=== PATIENT | female | born 1960 | race Caucasian/White ===

== ENCOUNTER 2019-09-21 18:55 | Emergency (ER) | payer MEDICARE, OTHER ==
[~2019-09-21] VITALS: Ht 160 cm; Wt 108.9 kg
[2019-09-21] MEDS ORDERED: IPRATROPIUM BROMIDE 0.02% 2.5 ML NEB NEB STA (21:21)
[2019-09-21] MEDS ORDERED: ALBUTEROL SULF 0.083% NEB SOLN 3 ML NEB NEB STA (21:21)
[2019-09-21] MEDS ORDERED: SODIUM CHLORIDE 0.9% 1000ML 1,000 ML IV STA (21:24)
[2019-09-21] MEDS ORDERED: HYDROCODONE/CHLORPHENIRAMINE 5 ML LIQCR PO PRN (21:30)
[2019-09-21] MEDS ORDERED: ACETAMINOPHEN 325 MG TAB ONE (21:42)
[2019-09-21] MEDS ORDERED: ACETAMINOPHEN 325 MG TAB PO ONE (22:30)
[2019-09-21 22:32] LABS: BASOPHILS % 0.4 % (0.0-1.0); EOSINOPHILS # (AUTO) 0.1 (0.0-0.4); HEMATOCRIT 43.7 % (34.2-44.1); HEMOGLOBIN 13.8 g/dL (12.0-16.0); LYMPHOCYTES # (AUTO) 1.5 (1.0-3.2); LYMPHOCYTES % 30.7 % (18.0-39.1); MEAN CORPUSCULAR HEMOGLOBIN 29.1 pg (28-32); MEAN CORPUSCULAR HGB CONC 31.6 g/dL (31-35); MEAN CORPUSCULAR VOLUME 92.2 fL (81-99); MONOCYTES # (AUTO) 0.7 (0.2-0.8); MONOCYTES % 13.5 % (4.4-11.3); NEUTROPHILS # (AUTO) 2.7 (2.1-6.9); NEUTROPHILS % 54.2 % (38.7-80.0); PLATELET COUNT 185 x10e3/uL (140-360); RED BLOOD COUNT 4.74 x10e6/uL (3.6-5.1); RED CELL DISTRIBUTION WIDTH 12.8 % (11.7-14.4)
[2019-09-21 22:48] LABS: INFLUENZAE A&B ANTIGEN (RAPID) POSITIVE FLU A (NEGATIVE); STREPTOCOCCUS GRP A ANTIGEN NEGATIVE (NEGATIVE)
--- NOTE | 2019-09-21 22:49 | NUR ---
MD NOTIFIED AND AWARE OF CRITICAL LAB VALUE: INFLUENZA A +.
[2019-09-21 22:52] LABS: ALANINE AMINOTRANSFERASE 39 IU/L (0-55); ALBUMIN 3.7 g/dL (3.5-5.0); ALKALINE PHOSPHATASE 96 IU/L (40-150); ANION GAP 12.8 mmol/L (8-16); BLOOD UREA NITROGEN 6 mg/dL (7-26); BUN/CREATININE RATIO 7 (6-25); CALCIUM 9.7 mg/dL (8.4-10.2); CARBON DIOXIDE 29 mmol/L (22-29); CHLORIDE 95 mmol/L (98-107); CREATININE, SERUM 0.87 mg/dL (0.57-1.11); EST GLOMERULAR FILTRATION RATE > 60 ML/MIN (60-); GLUCOSE 86 mg/dL (74-118); POTASSIUM 3.8 mmol/L (3.5-5.1); SODIUM 133 mmol/L (136-145)
--- NOTE | 2019-09-21 23:33 | Diagnostic Imaging Report ---
EXAMINATION: CHEST 2 VIEWS INDICATION: Fever and cough ^ORDER PLACED BY ^[id number] ^2210 ^Y COMPARISON: None FINDINGS: PA and lateral views TUBES and LINES: None. LUNGS: Limited by low lung volumes and body habitus. Left midlung linear opacification. Mild central vascular congestion, accentuated by low lung volumes. PLEURA: No pleural effusion or pneumothorax. HEART AND MEDIASTINUM: The cardiomediastinal silhouette is enlarged, accentuated by low lung volumes and technique.. BONES AND SOFT TISSUES: No acute osseous lesion. Lower thoracic spine vertebroplasty. Soft tissues are unremarkable. UPPER ABDOMEN: No free air under the diaphragm. IMPRESSION: Limited as above. Left midlung linear opacification, representing atelectasis and/or developing pneumonia. Signed by: Dr. Mike Booker MD on 09/21/2019 11:29 PM
--- OUTSIDE RECORDS SUMMARY | 2019-09-23 14:01 | XMS REPORT | Summary of Care ---
Author Author [facility] Organization [facility] Address Unknown Phone Unavailable Care Team Providers Care Process Analyst Name Role Phone Sasha Best MD PCP Symone Fan MD 29 Unavailable True Solorzano 29 Bryson Gonzalez MD 29 Reason for Referral * (Routine) Referred By Contact Referred To Contact Status Reason Specialty Diagnoses / Procedures Adonis Beckwith MD [address] [place] [address] Pending Diagnoses KAY (obstructive sleep apnea) P rocedures DIAGNOSTIC SLEEP STUDY * (Routine) Referred By Contact Referred To Contact Status Reason Specialty Diagnoses / Procedures Adonis Beckwith MD [address] [place] [id number] Pending Diagnoses KAY (obstructive sleep apnea) P rocedures DIAGNOSTIC SLEEP STUDY Reason for Visit * Reason Comments Shortness of Breath Encounter Details Care Team Description Date Type Department Adonis Beckwith MD [facility] [address] [address] [phone] Shortness of Breath 07/19/2019 Office Visit [facility] Pulmonary [address] [place] [address]. 8th Floor; [address] [place] [address] Allergies Comments Active Allergy Reactions Severity Noted Date Cefotaxime 10/12/2017 Cleocin Itching, Rash High 04/01/2016 Ibuprofen Itching, Rash High 01/12/2019 Opioid Analgesics Itching High 04/01/2016 Oxycodone-Acetaminophen Itching High 04/01/2016 Muscle spasms Prednisone Itching, High 08/11/2017 Nausea Only, Other (See Comments) documented as of this encounter (statuses as of 07/20/2019) Medications End Date Status Medication Sig Dispensed Refills Start Date Active HYDROmorphone (DILAUDID) Take 2 mg by 0 2 MG tablet mouth every 4 hours. Active atenolol (TENORMIN) 25 MG Take 1/2 45 Tab 3 tablet tablet by 8 mouth daily Active hydrOXYzine (ATARAX) 50 Take a half 30 Tab 1 MG tablet to full tab 9 by mouth daily as needed for anxiety Active Ivabradine HCl (CORLANOR) Take by 0 7.5 MG TABS mouth two times daily. Active amitriptyline (ELAVIL) 50 Take 1 Tab by 30 Tab 0 MG tablet mouth 9 nightly. Active hydroxychloroquine Take 1 Tab by 2 (PLAQUINIL) 200 MG tablet mouth two 9 times daily. Active midodrine (PROAMATINE) 5 Take 5 mg by 0 MG tablet mouth 3 times daily. 07/19/2019 Discontinued clobetasol (TEMOVATE) APPLY TO 1 0.05 % external solution AFFECTED 9 AREA(S) PRN 07/19/2019 Discontinued lorazepam (ATIVAN) 0.5 MG Take 0.5 mg 0 tablet by mouth as needed for Anxiety. documented as of this encounter (statuses as of 07/20/2019) Active Problems Problem Noted Date Regular check-up 05/04/2018 Tachycardia 03/30/2018 Inappropriate sinus tachycardia 03/30/2018 Fibromyalgia 03/30/2018 Elevated hemidiaphragm 04/02/2016 documented as of this encounter (statuses as of 07/20/2019) Social History Date Tobacco Use Types Packs/Day Years Used Quit: 04/01/1986 Former Smoker Cigarettes 0.5 6 Smokeless Tobacco: Never Used Drinks/Week oz/Week Comments Alcohol Use Very little. Maybe one/two drinks a year No Sex Assigned at Date Recorded Not on file Industry Job Start Date Occupation Not on file Not on file Not on file Travel End Travel History Travel Start No recent travel history available. documented as of this encounter Last Filed Vital Signs Reading Time Taken Comments Vital Sign 119/80 07/19/2019 3:16 PM CDT Blood Pressure 68 07/19/2019 3:16 PM CDT Pulse 37.3 C (99.2 F) 07/19/2019 3:16 PM CDT Temperature 16 07/19/2019 3:16 PM CDT Respiratory Rate - - Oxygen Saturation - - Inhaled Oxygen Concentration 105.7 kg (233 lb) 07/19/2019 3:16 PM CDT Weight 160 cm (5' 3") 07/19/2019 3:16 PM CDT Height 41.27 07/19/2019 3:16 PM CDT Body Mass Index documented in this encounter Patient Instructions * Patient Instructions* Adonis Beckwith MD - 07/19/2019 3:20 PM CDT Specific instructions: I have ordered a sleep study & I will call you with the results General instructions: 1. If you have not already done so, we encourage you to sign up for [employer] as i t is a secure and efficient way to contact us. 2. How to contact us: My Chart message is an efficient way to contact us for non-urgent matters. Call us at [phone]. The bone char kiln operator will get your information and a nurse o r physician will call you back. To send clinical records: You can scan and send as an attachment to a [employer] message, fax to [phone] or mail it to us. Mailing address- Pulmonary Clinic, [address], [facility], [address] [place] [address] 3. To schedule appointments, call 4. To schedule CT scans, call Radiology at [phone] Thank you choosing the Pulmonary Diseases clinic at [facility]. Please let us know what we can do better by providing comments on the survey you will receive. We value your feedback! documented in this encounter Progress Notes * Adonis Beckwith MD - 07/19/2019 3:20 PM CDT Chief Complaint Patient presents with Shortness of Breath ASSESSMENT & PLAN: Severe Exercise Limitation- can barely walk inside her house 07/23- Echo- LVEF > 60%, enlarged LA, RV mildly enlarged but global RV systolic function is normal. Est sPAP 25-30 + RAP 07/23- 6MW- walked only 130m, no desaturation (SaO2 elma 93%), HR baseline 68 a nd max 89 Etiology of exercise limitation? She is being treated for "Inappropriate Sinus T achycardia" by Dr. Sloan with Atenolol & Corlanor and for Orthostatic Hypotension with Midodrine. 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 Is tired and exhausted during the day. Will re-evaluate for KAY. Given her obesi ty, will check Diagnostic sleep study with ETCO2 monitoring to look for hypovent ilation. Lung Nodular Densities- 11/21/18- Ct Abd (by report)- no lung nodules repopted 11/26/18- CT chest (by report)- "Mild perihilar ground glass opacities are prese nt. Interval development of numerous predominantly subpleural nodules in the lef t lung, most of which are new since recent CT from 11/21/2018". She underwent B's copy on 11/30/18- all cultures were negative (I cannot see cytology results on Ca re Everywhere- she was told that cytology was normal). She was treated with empi jesusita Abx. 03/01/19- CT chest (reviewed)- no nodules. In all likelihood the nodules were inf ectious in nature and have resolved. No further GAO needed HISTORY OF PRESENT ILLNESS: 59 y.o. female, quit smoking 30 years ago. 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 Has not been able to work in 2007. Lives alone in a 3rd floor apartment that h as an elevator. 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 Her brother of A1AT deficiency related lung d z in 02/20 KAY- dx 2013. Did not perceive benefit from CPAP Large Pericardial cyst- surgery 2009 Paralyzed R hemidiaphragm since 2009- s/p repair by Dr. Castro in 05/20 Autoimmune hepatitis & MORSE- sees Dr. Varela- was on po Budesonide 07/22 to 09/21, Azathioprine from 11/23 to 01/21 Inflammatory arthritis? Patient has seen multiple Rheum without a specific di agnosis being made. Is HLA B27 positive. Now sees Dr. Herminia Thompson- On Plaquenil since 06/23. Plan is to start Mycophenolate Quantiferon Gold was "inconclusive"- saw ID, Dr. Saucedo- had PPD- was negative. Plan is for repeat PPD in 2 months Fibromyalgia- followed by Dr. Best- on po Dilaudid PRN T12 compression fracture and underwent kyphoplasty 11/23 Inappropriate Sinus tachycardia- seeing Dr. Sloan, EPS. Is on Atenolol, Midod rine & Ivabradine. Current Symptoms: Last hosp was 11/21/18 to 12/07/18 to [facility] with R back & flank pain. Had a T12 compression fracture and underwent kyphoplasty. Had B'scopy for lung densities (see above). Very deconditioned. She did home PT then Pulm Rehab. Was doing better, but has slid back since then. Dominant symptoms are "high heart rate" and R flank pain. Has a provider for 4 hours/d (prescribed by Dr. Best). Gets fatigued with minimal activity such as making breakfast or taking a shower. Her HR will go up "by 15 points" despite the Atenolol & Corlanor. "I cannot do anything". Hardly ventures out of the house. Her care provider does her groceries. Was Dced home in 12/21 with O2. She uses it at night. Was DCed home with nebulize r- has not used it in a while. She goes to bed around SC, falls asleep without d ifficulty. Uses O2 at night. No snoring is reported. She gets up around 9 AM and does not always feel rested. She is tired during the day. She does not nap duri ng the day. She c/o "fullness" R upper abdomen, she thinks it is from "nerve damage" after d iaphragm plication REVIEW OF SYSTEMS: Constitutional: No fever, chills or night sweats. Weight no change HENT: Negative for congestion and postnasal drip. Eyes: Negative. Cardiovascular: Per HPI. Leg swelling no Gastrointestinal: No heartburn. No abdominal distention, nausea or vomiting Endocrine: Negative. Genitourinary: Negative. Musculoskeletal: Arthralgias, sabino neck & back Skin: Negative. Allergic/Immunologic: Negative. Neurological: Negative. Hematological: No bleeding Psychiatric/Behavioral: Negative. PHYSICAL EXAMINATION: Vital signs: Vitals: 07/19/19 1516 BP: 119/80 BP Location: right arm Patient Position: Sitting Pulse: 68 Resp: 16 Temp: 99.2 F (37.3 C) TempSrc: Oral Weight: 233 lb (105.7 kg) Height: 5' 3" (1.6 m) Constitutional: Oriented to person, place, and time. Well-developed and well-nou rished. HENT: Mallampati Class- III Nose- mild congestion Head: Normocephalic and atraumatic. Eyes: Conjunctivae are normal. Pupils are equal, round, and reactive to light. Neck: Normal range of motion. Neck supple. No JVD present. Cardiovascular: Normal rate and regular rhythm. Pulmonary/Chest: clear Abdominal: Soft. Bowel sounds are normal. Extremities- no edema Musculoskeletal: Normal range of motion. Lymphadenopathy: No cervical adenopathy. Neurological: Alert and oriented to person, place, and time. Skin: Skin is warm and dry. Psychiatric: Normal mood and affect. PAST, FAMILY & SOCIAL HISTORY: I have reviewed & updated the following historical data elements: Past Medical History: Diagnosis Date Autoimmune hepatitis (HCCode) Back pain CFIDS (chronic fatigue and immune dysfunction syndrome) (HCCode) Depression with anxiety Fibromyalgia Inflammatory arthritis Inflammatory Spindoylo Arthritis; Per Patient Memory loss Migraine MORSE (nonalcoholic steatohepatitis) Obesity Osteopenia Palpitations Rectal mass Renal stone Past Surgical History: Procedure Laterality Date HX ANKLE SURGERY Right HX APPENDECTOMY HX CHOLECYSTECTOMY HX HYSTERECTOMY HX INNER EAR SURGERY Right repair of superior canal dehiscense HX KYPHOSIS SURGERY HX LUNG SURGERY 2016 HX SINUS SURGERY HX THORACOSCOPY Right 02/2011 pericardial cyst removal Family History Problem Relation Name Age of Onset Diabetes Mother Heart Disease Mother High Blood Pressure Mother Diabetes Father Heart Disease Father High Blood Pressure Father Stroke Father Cancer Other Social History Socioeconomic History Marital status: Spouse name: Not on file Number of children: Not on file Years of education: Not on file Highest education level: Not on file Occupational History Occupation: Disabled Comment: 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 Maybe one/two drinks a year Drug use: No Sexual activity: Not on file Lifestyle Physical activity: Days per week: Not on file Minutes per session: Not on file Stress: Not on file Relationships Social connections: Talks on phone: Not on file Gets together: Not on file Attends zoroastrianism service: Not on file Active member of club or organization: Not on file Attends meetings of clubs or organizations: Not on file Relationship status: Not on file Intimate partner violence: Fear of current or ex partner: Not on file Emotionally abused: Not on file Physically abused: Not on file Forced sexual activity: Not on file Other Topics Concerns: Not on file Social History Narrative Not on file ALLERGIES: Allergies Allergen Reactions Cleocin Itching and Rash Ibuprofen Itching and Rash Morphine And Related [Opioid Analgesics] Itching Percocet [Oxycodone-Acetaminophen] Itching Prednisone Itching, Nausea Only and Other (See Comments) Muscle spasms Cefotaxime CURRENT MEDICATIONS: Outpatient Encounter Medications as of 07/19/2019 Medication Sig Dispense Refill [DISCONTINUED] alendronate (FOSAMAX) 70 MG tablet TAKE 1 TABLET BY MOUTH ONC E A WEEK 2 amitriptyline (ELAVIL) 50 MG tablet Take 1 Tab by mouth nightly. 30 Tab 0 atenolol (TENORMIN) 25 MG tablet Take 1/2 tablet by mouth daily 45 Tab 3 [DISCONTINUED] Budesonide ER 9 MG TB24 Take 1 Tab by mouth daily. [DISCONTINUED] clobetasol (TEMOVATE) 0.05 % external solution APPLY TO AFFEC TATIANNA AREA(S) PRN 1 HYDROmorphone (DILAUDID) 2 MG tablet Take 2 mg by mouth every 4 hours. hydroxychloroquine (PLAQUINIL) 200 MG tablet Take 1 Tab by mouth two times d aily. 2 hydrOXYzine (ATARAX) 50 MG tablet Take a half to full tab by mouth daily as needed for anxiety (Patient not taking: Reported on 07/19/2019) 30 Tab 1 [DISCONTINUED] ipratropium-albuterol (DUO-NEB) 0.5-2.5 (3) MG/3ML 3 mL by In halation route as needed. Ivabradine HCl (CORLANOR) 7.5 MG TABS Take by mouth two times daily. [DISCONTINUED] Ivabradine HCl (CORLANOR) 7.5 MG TABS Take 7.5 mg by mouth tw o times daily. 60 Tab 3 [DISCONTINUED] ketoconazole (NIZORAL) 2 % cream APPLY TO AFFECTED AREA(S) MI N 0 lorazepam (ATIVAN) 0.5 MG tablet Take 0.5 mg by mouth as needed for Anxiety. [DISCONTINUED] lorazepam (ATIVAN) 0.5 MG tablet Take 1 Tab by mouth nightly as needed for Anxiety. 15 Tab 0 [DISCONTINUED] lorazepam (ATIVAN) 0.5 MG tablet Take 0.5 mg by mouth daily. midodrine (PROAMATINE) 5 MG tablet Take 5 mg by mouth 3 times daily. [DISCONTINUED] mirtazapine (REMERON) 15 MG tablet Take 1 Tab by mouth nightl y. 30 Tab 1 [DISCONTINUED] mirtazapine (REMERON) 15 MG tablet Take 1 Tab by mouth nightl y. 30 Tab 1 [DISCONTINUED] mupirocin (BACTROBAN) 2 % ointment APPLY TO AFFECTED AREA(S) PRN 0 [DISCONTINUED] ondansetron (ZOFRAN) 8 mg tablet Take 8 mg by mouth as needed . No facility-administered encounter medications on file as of 07/19/2019. documented in this encounter Plan of Treatment Care Team Description Date Type Specialty Adonis Beckwith MD [address] [id number] 11/22/2019 Office Visit Pulmonology Order Schedule Name Type Priority Associated Diagnoses 1 Occurrences starting 07/19/2019 until 07/19/2020 DIAGNOSTIC SLEEP STUDY Sleep Center Routine KAY (obstructive sleep apnea) Health Maintenance Due Date Last Done Comments COLON CANCER SCREENIN1962 COLONOSCOPY MAMMOGRAM ANNUAL 1962 MEDICARE AWV 1962 TETANUS SHOT (ADULT) 1977 BMI FOLLOW UP PLAN 02/25/1980 HIV SCREENING 02/25/1980 CERVICAL CANCER SCREENING 1983 3 YEAR FOLLOW UP FLU VACCINE > 6 MONTHS 05/05/2019 HEPATITIS C SCREENING Completed 05/14/2019 documented as of this encounter Results Not on filedocumented in this encounter Visit Diagnoses Diagnosis Dyspnea, unspecified type - Primary KAY (obstructive sleep apnea) Obstructive sleep apnea (adult) (pediatric) Lung nodules Other nonspecific abnormal finding of lung field documented in this encounter Insurance Type Payer Benefit Subscriber ID Effective Phone Address Plan / Dates Group PPO [facility] DUAL xxxxxxxxx 2018-P [address] [place] [address] CHOICE([place])-[facility] [id number] documented as of this encounter
--- OUTSIDE RECORDS SUMMARY | 2019-09-23 14:01 | XMS REPORT ---
Author Author [facility] Address Unknown Phone Unavailable Care Team Providers Care Typer Name Role Phone RUBYAnjelica FER Unavailable Unavailable RAJNI DAHL Unavailable Unavailable Payers Payer Name Policy Type Policy Number Effective Date Expiration Date Problems This patient has no known problems. Allergies, Adverse Reactions, Alerts Allergy Name Allergy Type Status Severity Reaction(s) Onset Date Inactive Date Treating Clinician Comments clindamycin DA Active U 2018-05-10 00:00:00 sulfur DA Active U 2018-05-10 00:00:00 sulfacetamide DA Active U 2018-05-10 00:00:00 Medications This patient has no known medications. Results Test Description Test Time Test Comments Text Results Atomic Results Result Comments CHEST 2 VIEWS 2019-09-21 23:27:00 [place] [address] Patient Name: MELO MANSFIELD MR #: [id number] : 1960 Age/Sex: 59/F Req #: [id number] Adm Physician: Ordered by: HUMBERTO BREEN CABLE INSTALLER REPAIRER HELPER Report #: [id number] Location: ER Room/Bed: Procedure: [id number] DX/CHEST 2 VIEWS Exam Date: 09/21/19 Exam Time: 2209 REPORT STATUS: Signed EXAMINATION: CHEST 2 VIEWS INDICATION: Fever and co ugh ORDER PLACED BY [id number] COMPARISON: None FINDINGS: PA and lateral views TUBES and LINES: None. LUNGS: Limited by low lung volumes and body habitus. Left midlung linear opacification. Mild central vascular congestion, accentuated by low lung volumes. PLEURA: No pleural effusion or pneumothorax. HEART AND MEDIASTINUM: The cardiomediastinal silhouette is enlarged, accentuated by low lung volumes and technique.. BONES AND SOFT TISSUES: No acute osseous lesion. Lower thoracic spine vertebroplasty. Soft tissues are unremarkable. UPPER ABDOMEN: No free air under the diaphragm. IMPRESSION: Limited as above. Left midlung linear opacification, representing atelectasis and/or developing pneumonia. Signed by: Dr. Mike Hunter MD on 09/21/2019 11:29 PM Dictated By: MKIE HUNTER MD 28 Transcribed By: PRABHU on 09/21/192328 COPY TO: HUMBERTO BREEN NP BASIC METABOLIC PANEL 2019-06-27 13:34:00 SODIUM (test code=NA) 138 mEq/L 134-147 POTASSIUM (test code=K) 4.0 mEq/L 3.4-5.0 CHLORIDE (test code=CL) 103 mEq/L 100-108 CARBON DIOXIDE (test code=CO2) 35 mEq/L 21-33 ANION GAP (test code=GAP) 4 0-20 GLUCOSE (test code=GLU) 78 mg/dL 70-110 BLOOD UREA NITROGEN (test code=BUN) 8 mg/dL 7-18 GLOMERULAR FILTRATION RATE (test code=GFR) 86.2 90-95 Units of measure=ml/min/1.73 m2 CREATININE (test code=CREAT) 0.7 mg/dL 0.6-1.3 CALCIUM (test code=CA) 9.4 mg/dL 8.0-10.5 [id number] 13:34:00* Test Item Value Reference Range Comments MAGNESIUM (test code=MAG) 1.90 mg/dL 1.8-2.4 THYROID STIMULATING [id number] 13:34:00* Test Item Value Reference Range Comments THYROID STIMULATING HORMONE (test code=TSH) 2.46 0.42-5.47 Results in jose ramon-International Units/mL [id number] 13:34:00* Test Item Value Reference Range Comments TROPONIN-I (test code=TROPI) < 0.015 ng/mL 0.000-0.045 Negative: <=0.045 Positive: >=0.046 Correlation with serial results, other cardiac markers andclinical findings is necessary to determine the clinicalsignificance of this result. Results using different methodologies should not be comparedto one another as quantitative results may vary by method. BASIC METABOLIC [id number] 13:22:00* Test Item Value Reference Range Comments SODIUM (test code=NA) mEq/L 134-147 POTASSIUM (test code=K) mEq/L 3.4-5.0 CHLORIDE (test code=CL) mEq/L 100-108 CARBON DIOXIDE (test code=CO2) mEq/L 21-33 ANION GAP (test code=GAP) 0-20 GLUCOSE (test code=GLU) mg/dL 70-110 BLOOD UREA NITROGEN (test code=BUN) 8 mg/dL 7-18 GLOMERULAR FILTRATION RATE (test code=GFR) 90-95 CREATININE (test code=CREAT) mg/dL 0.6-1.3 CALCIUM (test code=CA) mg/dL 8.0-10.5 [id number] 13:22:00* Test Item Value Reference Range Comments MAGNESIUM (test code=MAG) mg/dL 1.8-2.4 THYROID STIMULATING [id number] 13:22:00* Test Item Value Reference Range Comments THYROID STIMULATING HORMONE (test code=TSH) 0.42-5.47 [id number] 13:22:00* Test Item Value Reference Range Comments TROPONIN-I (test code=TROPI) ng/mL 0.000-0.045 BASIC METABOLIC [id number] 13:22:00* Test Item Value Reference Range Comments SODIUM (test code=NA) 138 mEq/L 134-147 POTASSIUM (test code=K) 4.0 mEq/L 3.4-5.0 CHLORIDE (test code=CL) 103 mEq/L 100-108 CARBON DIOXIDE (test code=CO2) 35 mEq/L 21-33 ANION GAP (test code=GAP) 4 0-20 GLUCOSE (test code=GLU) 78 mg/dL 70-110 BLOOD UREA NITROGEN (test code=BUN) 8 mg/dL 7-18 GLOMERULAR FILTRATION RATE (test code=GFR) 86.2 90-95 Units of measure=ml/min/1.73 m2 CREATININE (test code=CREAT) 0.7 mg/dL 0.6-1.3 CALCIUM (test code=CA) 9.4 mg/dL 8.0-10.5 [id number] 13:22:00* Test Item Value Reference Range Comments MAGNESIUM (test code=MAG) 1.90 mg/dL 1.8-2.4 THYROID STIMULATING [id number] 13:22:00* Test Item Value Reference Range Comments THYROID STIMULATING HORMONE (test code=TSH) 0.42-5.47 [id number] 13:22:00* Test Item Value Reference Range Comments TROPONIN-I (test code=TROPI) < 0.015 ng/mL 0.000-0.045 Negative: <=0.045 Positive: >=0.046 Correlation with serial results, other cardiac markers andclinical findings is necessary to determine the clinicalsignificance of this result. Results using different methodologies should not be comparedto one another as quantitative results may vary by method. - XR CHEST 1 [id number] 13:21:00 FAX: Mata Stevenson DO [phone] [place]: St: REG FAX: Sasha Cabrera [phone] Name: MELO SABILLON [facility] : 1960 Age/S: 59/F [address] [place] [address] Unit #: [id number] Loc: [address] [address] Phys: Mata Morrow DO Acct: [id number] Dis Date: Status: REG ER PHONE #: [phone] Exam Date: 06/27/2019 1324 FAX #: [phone] Reason: Chest Pain EXAMS: CPT CODE: [id number] XR CHEST 1 V 28819 1 VIEW CXR. PORTABLE EXAM 1:03 PM HISTORY: Chest pain. Lightheadedness. Shortness of breath. COMPARISON: 05/10/2018 chest x-ray. The lungs are clear with normal pulmonary vasculature. Cardiomediastinal silhouette normal. No pleural abnormality. Bony thorax intact. IMPRESSION: Normal exam. END OF IMPRESSION SL: [id number] at 1321 Reported and signed by: Bello Hensley M.D. CC: Mata Morrow DO; Sasha Best M.D. Technologist: RT William(R) Trnscrd Date/Time/By: 06/27/2019 (1321) : By: Yair Orig Print D/T: S: 06/27/2019 (5555) PAGE 1 Signed Report PROTHROMBIN [id number] 13:05:00* Test Item Value Reference Range Comments PROTHROMBIN TIME PATIENT (test code=PTP) 12.8 SECONDS 9.3-12.9 INTERNATIONAL NORMAL RATIO (test code=INR) 1.2 0.8-1.2 TARGET INR BY INDICATION Indication INR1. Prophylaxis of venous thrombosis 2.0 - 3.0 (orthopedic surgery), Prophylaxis of venous thrombosis (other than high-risk surgery), Treatment of Deep Vein Thrombosis/Pulmonary Embolism, Prevention of systemic embolism - Tissue heart valves, Acute Myocardial Infarction (to prevent systemic embolism), Valvular heart disease, Atrial Fibrillation, Bileaflet mechanical valve in aortic position.2. Mechanical prosthetic valves (high risk), 2.5 - 3.5 Presence of Lupus Anticoagulant or Antiphospholipid Antibodies, Prevention of systemic embolism - Acute Myocardial Infarction (to prevent recurrent infarct). CBC W/AUTO [id number] 13:03:00* Test Item Value Reference Range Comments WHITE BLOOD CELL (test code=WBC) 8.15 x10 3/uL 4.5-11.0 RED BLOOD CELL (test code=RBC) 4.69 x10 6/uL 3.54-5.02 HEMOGLOBIN (test code=HGB) 13.8 g/dL 11.0-15.0 HEMATOCRIT (test code=HCT) 43.3 % 33.0-45.0 MEAN CELL VOLUME (test code=MCV) 92.3 fL 81.0-99.0 MEAN CELL HGB (test code=MCH) 29.4 pg 27.0-33.0 MEAN CELL HGB CONCETRATION (test code=MCHC) 31.9 g/dL 33.0-37.0 RED CELL DISTRIBUTION WIDTH CV (test code=RDW) 12.6 % 11.5-14.5 RED CELL DISTRIBUTION WIDTH SD (test code=RDW-SD) 42.4 fL 37.0-54.0 PLATELET COUNT (test code=PLT) 224 x10 3/uL 150-400 MEAN PLATELET VOLUME (test code=MPV) 9.6 fL 7.0-9.0 NEUTROPHIL % (test code=NT%) 60.3 % 56.0-77.0 IMMATURE GRANULOCYTE % (test code=IG%) 0.4 % 0.0-2.0 LYMPHOCYTE % (test code=LY%) 28.5 % 14.0-32.0 MONOCYTE % (test code=MO%) 8.1 % 4.8-9.0 EOSINOPHIL % (test code=EO%) 2.3 % 0.3-3.7 BASOPHIL % (test code=BA%) 0.4 % 0.0-2.0 NUCLEATED RBC % (test code=NRBC%) 0.0 % 0-0 NEUTROPHIL # (test code=NT#) 4.92 x10 3/uL 2.0-7.6 IMMATURE GRANULOCYTE # (test code=IG#) 0.03 x10 3/uL 0.00-0.03 LYMPHOCYTE # (test code=LY#) 2.32 x10 3/uL 1.0-3.8 MONOCYTE # (test code=MO#) 0.66 x10 3/uL 0.1-0.8 EOSINOPHIL # (test code=EO#) 0.19 x10 3/uL 0.0-0.2 BASOPHIL # (test code=BA#) 0.03 x10 3/uL 0.0-0.2 NUCLEATED RBC # (test code=NRBC#) 0.00 x10 3/uL 0.0-0.1 MANUAL DIFF REQUIRED (test code=MDIFF) NO CT, CHEST, WITH IV [id number] 13:21:00FINAL REPORT EXAM: CT Chest with contrast March 01, 2019INDICATION: Shortness of breath. Anxiety. Tachycardia. Multiple pulmonary nodules. Fibromyalgia. Cholecystectomy COMPARISON: May 31, 2016 TECHNIQUE:Chest was scanned utilizing a multidetector helical scanner from the lung apex through the level of the adrenal glands after administration of IV contrast. Coronal and sagittal reformations were obtained. Routine protocol was performed. IV CONTRAST: 100 cc Omnipaque 300 COMPLICATIONS: None RADIATION DOSE: Total DLP: 367.65 mGy*cm Estimated effective dose: (DLP x 0.014 x size factor) mSv CTDIvol has been reviewed. It is below the limits set by the Radiation Protocol C ommittee (RPC). Dose modulation, iterative reconstruction and weight based adjus tment of the MA/KV was utilized to reduce the patient dose to as low as reasonab ly achievable. FINDINGS: LINES/ TUBES: None. LUNGS AND AIRWAYS: No manning spicious pulmonary nodules are seen. Mild chronic appearing change in the lungs with regions of apparent scarring/atelectasis most pronounced in the lower lobes . Airways are normal. PLEURA: The pleural spaces are clear. HEART AND MEDIASTIN UM: The thyroid gland is normal. No mediastinal, hilar or axillary lymphadenopa thy. The heart is normal in size. There is no pericardial effusion. UPPER ABDOMEN: Cholecystectomy clips. BONES: Radiopaque material in one of the lower t horacic vertebral bodies. SOFT TISSUES: Unremarkable. IMPRESSION:No suspicious p ulmonary nodules are seen. Mild chronic appearing change in the lungs with regio ns of apparent scarring/atelectasis most pronounced in the lower lobes Signed: Alyse Ray Verified Date/Time: 03/01/2019 13:21:34 Reading Location: [facility] Reading Room [address] [place] [address] -[id number] 12:27:00* Test Item Value Reference Range Comments POC-CREATININE (AJ) (test exzm=0049) 0.6 mg/dL 0.6-1.[address] [facility] [address] [facility] [address] POC-EGFR (AJ) (test lvcs=7573) 103 mL/min/1.73M2
--- OUTSIDE RECORDS SUMMARY | 2019-09-23 14:01 | XMS REPORT | Summary of Care ---
Author Author [facility] Organization [facility] Address Unknown Phone Unavailable Care Team Providers Care Oil Separator Name Role Phone Sasha Best MD PCP Symone Fan MD 29 True Solorzano 29 Bryson Gonzalez MD 29 Reason for Referral * Test (Routine) Referred By Contact Referred To Contact Status Reason Specialty Diagnoses / Procedures Kb Sloan MD [address] [place] [id number] Pending Diagnoses Dizziness SOB (shortness of breath) on exertion Inappropriate sinus tachycardia P rocedures STUDY TILT * Test (Routine) Referred By Contact Referred To Contact Status Reason Specialty Diagnoses / Procedures Kb Sloan MD [address] [place] [phone] Pending Consult, Test, and Cardiology Diagnoses Treat Dizziness SOB (shortness of breath) on exertion Inappropriate sinus tachycardia P rocedures EVENT MONITOR * Radiology Services (Routine) Referred By Contact Referred To Contact Status Reason Specialty Diagnoses / Procedures Clayton Henderson MD E-Auth Not Cardiology Diagnoses Needed Dizziness P rocedures ECHO, COMPLETE Reason for Visit * Reason Comments Dizziness Encounter Details Care Team Description Date Type Department Kb Sloan MD [address] [place] [address] [place], [place] [address] [place] [address] [phone] Dizziness 06/29/2019 Office Visit [facility] [address] [place] [address] [address] [place] [address] Allergies Comments Active Allergy Reactions Severity Noted Date Cefotaxime 10/12/2017 Cleocin Itching, Rash High 04/01/2016 Ibuprofen Itching, Rash High 01/12/2019 Opioid Analgesics Itching High 04/01/2016 Oxycodone-Acetaminophen Itching High 04/01/2016 Muscle spasms Prednisone Itching, High 08/11/2017 Nausea Only, Other (See Comments) documented as of this encounter (statuses as of 06/29/2019) Medications End Date Status Medication Sig Dispensed Refills Start Date Active HYDROmorphone (DILAUDID) Take 2 mg by 0 2 MG tablet mouth every 4 hours. Active atenolol (TENORMIN) 25 MG Take 1/ 45 Tab 3 tablet tablet by 8 mouth daily Active clobetasol (TEMOVATE) APPLY TO 1 0.05 % external solution AFFECTED 9 AREA(S) PRN Active hydrOXYzine (ATARAX) 50 Take a half 30 Tab 1 MG tablet to full tab 9 by mouth daily as needed for anxiety 07/08/2019 Active amitriptyline (ELAVIL) 25 Take 1 Tab by 53 Tab 0 MG tablet mouth nightly 9 for 7 days, THEN 2 Tabs nightly for 23 days. Active Ivabradine HCl (CORLANOR) Take by 0 7.5 MG TABS mouth two times daily. Active lorazepam (ATIVAN) 0.5 MG Take 0.5 mg 0 tablet by mouth as needed for Anxiety. 06/29/2019 Discontinued alendronate (FOSAMAX) 70 TAKE 1 TABLET 2 MG tablet BY MOUTH ONCE 9 A WEEK 06/29/2019 Discontinued lorazepam (ATIVAN) 0.5 MG Take 1 Tab by 15 Tab 0 tablet mouth nightly 9 as needed (insomnia). 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 documented as of this encounter (statuses as of 06/29/2019) Social History Date Tobacco Use Types Packs/Day [...] Signs Reading Time Taken Comments Vital Sign 98/62 06/29/2019 11:14 AM CDT Blood Pressure 67 06/29/2019 11:02 AM CDT Pulse - - Temperature - - Respiratory Rate - - Oxygen Saturation - - Inhaled Oxygen Concentration 106.1 kg (234 lb) 06/29/2019 11:02 AM CDT Weight 160 cm (5' 3") 06/29/2019 11:02 AM CDT Height 41.45 06/29/2019 11:02 AM CDT Body Mass Index documented in this encounter Progress Notes * Clayton Henderson MD - 06/29/2019 10:30 AM CDT Chief Complaint Patient presents with Dizziness History of Present Illness: 59 y.o. 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 After pericardial cyst removal and subsequent palsy has pulmonary issues with re strictive lung disease and hypoxia --> IST. Improved on Ivabradine and atenolol. Still has some symptoms of breathlessness, hypoxia, and tachycardia during exertion in pulmonary rehab. Has a new pulmonary physician. Has been using O2 less during the day. Also has orthostatic hypotension tried on fludrocortisone, atenolol, carvedilol, metoprolol, increased salt/water intake in the past. Negative tilt table, hol ter monitor. Denies syncope. Interim: Has noted that her blood pressure has seemed to be lower than usual and when she stand up she may have light-headedness. When she stands she will become tachyc ardic and have significant symptoms. This is greatly affecting her quality of l amanda as she has to remain sitting for most of the day. Started amitryptiline 3 weeks ago, stopped plaquenil while taking levaquin for a damaged tooth. Now she has finished the levaquin. Reports that the amitryptil ine has significantly helped her anxiety symptoms. Review of Systems General: fatigue, dizziness Eyes: blurring ENT: ringing in ears (tinnitus), hoarseness Cardiovascular: chest pains, palpitations, shortness of breath on exertion Respiratory: shortness of breath GI: nausea, diarrhea : urinary frequency, incontinence Musculoskeletal: back pain, joint pain, joint swelling, muscle weakness, muscle pains, stiffness, arthritis, osteoporosis Skin: itching, dryness Neurologic: weakness, tingling or burning sensation of skin, tremors, headache Endocrine: cold intolerance Hematology/Lymphatic: enlarged lymph nodes Medications: amitriptyline (ELAVIL) 25 MG tablet Take 1 Tab by mouth nightly for 7 days, THEN 2 Tabs nightly for 23 days. atenolol (TENORMIN) 25 MG tablet Take 1/2 tablet by mouth daily clobetasol (TEMOVATE) 0.05 % external solution APPLY TO AFFECTED AREA(S) PRN HYDROmorphone (DILAUDID) 2 MG tablet Take 2 mg by mouth every 4 hours. hydrOXYzine (ATARAX) 50 MG tablet Take a half to full tab by mouth daily as needed for anxiety Ivabradine HCl (CORLANOR) 7.5 MG TABS Take by mouth two times daily. lorazepam (ATIVAN) 0.5 MG tablet Take 0.5 mg by mouth as needed for Anxiety. 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 Maybe one/two drinks a year Drug use: No Sexual activity: Not on file Lifestyle Physical activity: Days per week: Not on file Minutes per session: Not on file Stress: Not on file Relationships Social connections: Talks on phone: Not on file Gets together: Not on file Attends orthodox service: Not on file Active member of [...] file Social History Narrative Not on file I have reviewed the PMH, SH, FHX, ROS, MEDS, ALLERGIES and updated the computeri zed patient record appropriately. Physical Exam BP 98/62 (BP Location: left arm, Patient Position: Sitting) | Pulse 67 | Ht 5' 3" (1.6 m) | Wt 234 lb (106.1 kg) | BMI 41.45 kg/m General Appearance: Alert, cooperative, no distress, appears stated age Head: Normocephalic, without obvious abnormality, atraumatic Eyes: PERRL, conjunctiva/corneas clear, EOM's intact Neck: Supple, symmetrical, trachea midline, no adenopathy; thyroid: No enlargement/tenderness/nodules; carotid bruit absent JVD: Appears normal Back: Symmetric, no curvature Lungs: Clear to auscultation bilaterally, respirations unlabored Chest wall: No tenderness or deformity Heart: S1 and S2 normal, no murmur, click, gallop or rub Abdomen: Soft, non-tender, bowel sounds active all four quadrants, no masses, no organomegaly Extremities: Extremities normal, atraumatic, no cyanosis or edema Skin: Skin color, texture, turgor normal, no rashes or lesions Neurologic: motor exam grossly intact Other test results reviewed: ECG: NSR, HR 60s Laboratory results: reviewed Assessment and Plan: Kayla was seen today for dizziness. Diagnoses and all orders for this visit: Dizziness - ELECTROCARDIOGRAM COMPLETE Sinus tachycardia appears to be multifactorial, related to lung disease (diaphra gm paralysis), also has anxiety, rheumatological issues -has pulmonary surgery - question if reduced use of oxygen leads the HR symptoms to worsened. - HR relatively well-controlled at rest on ivabradine and atenolol Bradycardia- patient reports HR in 40's at times during the day -48hr monitor, patient should not change her medication dosing during this time -restart midodrine -if BP responds with midodrine, may be able to reduce atenolol Orthostatic hypotension -reports she drinks significant fluid intake -do tilt table test supervised by Dr. Sloan Restart midodrine for symptoms- hold midodrine if SBP > 130 -reminded to take midodrine every 4 hours except not before bedtime. Seen and discussed with Dr. Sloan I have thoroughly reviewed the above patient in detail. I was present for the hi story and physical exam and I concur with the above statements. My medical decis ion-making is noted in the assessment and plan/recommendations as above. Kb Sloan MD, FACC [employer] [facility] Clinical & Interventional Electrophysiology [address] [place] [address] [place] [address] documented in this encounter Plan of Treatment Care Team Description Date Type Specialty 07/05/2019 Ancillary Cardiology Procedure A, [place] Pft-Pft Tech 07/19/2019 Procedure Pulmonology Visit-Tech Performed Chela Dejesus Pft-Pft Tech 07/19/2019 Procedure Pulmonology Visit-Tech Performed Adonis Beckwith MD [address] [facility] [address] [place] [address] [phone] 07/19/2019 Office Visit Pulmonology Date/Time Name Type Priority Associated Diagnoses 06/29/2019 ELECTROCARDIOGRAM ECG Routine Dizziness COMPLETE Order Schedule Name Type Priority Associated Diagnoses Expected: 06/29/2019, Expires: 12/28/2019 ECHO, COMPLETE Cardiac Routine Dizziness Services 1 Occurrences starting 06/29/2019 until 09/27/2019 EVENT MONITOR ECG Routine Dizziness SOB (shortness of breath) on exertion Inappropriate sinus tachycardia 1 Occurrences starting 06/29/2019 until 06/29/2020 STUDY TILT Electrophysiolo Routine Dizziness gy SOB (shortness of breath) on exertion Inappropriate sinus tachycardia Health Maintenance Due Date Last Done Comments COLON CANCER SCREENIN1962 COLONOSCOPY MAMMOGRAM ANNUAL 1960 MEDICARE AWV 1960 TETANUS SHOT (ADULT) 1977 BMI FOLLOW UP PLAN 02/25/1980 HIV SCREENING 02/25/1980 CERVICAL CANCER SCREENING 1983 3 YEAR FOLLOW UP FLU VACCINE > 6 MONTHS 05/05/2019 HEPATITIS C SCREENING Completed 05/14/2019 documented as of this encounter Results Not on filedocumented in this encounter Visit Diagnoses Diagnosis Inappropriate sinus tachycardia - Primary Other specified cardiac dysrhythmias Dizziness Dizziness and giddiness SOB (shortness of breath) on exertion Shortness of breath documented in this encounter Insurance Type Payer Benefit Subscriber ID Effective Phone Address Plan / Dates Group PPO [facility] DUAL xxxxxxxxx 2018-P [address] [place] [address] CHOICE([place] [id number] documented as of this encounter
== END 2019-09-21 23:38 | disposition home or self-care (01) ==
LOC: ER 18:55
DX: R50.9 Fever, unspecified (principal); R05 Cough; J11.1 Influenza due to unidentified influenza virus with other respiratory manifestations; J40 Bronchitis, not specified as acute or chronic
CPT/HCPCS: 36415; 71046; 80053; 83518; 85025; 87070; 87400; 99284; J7030